=== PATIENT | female | born 1985 | race Two or more races ===

== ENCOUNTER 2017-02-03 12:49 | Day surgery (SDC) | payer BC ==
[~2017-02-03] VITALS: Ht 152.4 cm; Wt 76.0 kg
[~2017-02-03 12:49] MED LIST: NONE PER PT
[2017-02-03] MEDS ORDERED: LACTATED RINGERS 1,000 ML IV SCH (13:17)
[2017-02-03 13:21] VITALS: BP 120/80
[2017-02-03 13:39] LABS: HCG UR OBC PASS
[2017-02-03] MEDS ORDERED: MIDAZOLAM 1 MG/ML, 2ML ONE (14:10)
[2017-02-03] MEDS ORDERED: FENTANYL PF 100 MCG/2ML ONE ×2 (14:10→15:51)
[2017-02-03] MEDS ORDERED: BUPIVACAINE/PF 0.5% ONE (14:37)
[2017-02-03] MEDS ORDERED: METOCLOPRAMIDE 5 MG/ML, 2ML ONE (14:45)
[2017-02-03] MEDS ORDERED: CEFAZOLIN 1,000 MG ONE (14:45)
[2017-02-03] MEDS ORDERED: DEXAMETHASONE 4 MG/ML, 1ML ONE (14:45)
[2017-02-03] MEDS ORDERED: PROPOFOL 10 MG/ML, 20ML ONE (14:45)
[2017-02-03] MEDS ORDERED: MIDAZOLAM 1 MG/ML, 2ML IV PRN (15:00)
[2017-02-03] MEDS ORDERED: hydrALAzine 20 MG/ML, 1ML IV PRN (15:00)
[2017-02-03] MEDS ORDERED: MEPERIDINE/PF 25MG/0.5ML IVPush PRN (15:00)
[2017-02-03] MEDS ORDERED: PROMETHAZINE 25 MG/ML, 1ML IV PRN (15:00)
[2017-02-03] MEDS ORDERED: ONDANSETRON 2MG/ML, 2ML IVPush PRN (15:00)
[2017-02-03] MEDS ORDERED: OXYcodone 5 MG/5 ML ORAL.SOL UDC PO PRN (15:00)
[2017-02-03] MEDS ORDERED: LABETALOL 5MG/ML, 20ML IV PRN (15:00)
[2017-02-03] MEDS ORDERED: OXYcodone 5 MG/5 ML ORAL.SOL UDC ONE (15:52)
[2017-02-03] MEDS: FENTANYL PF 100 MCG/2ML IV PRN ×2 (15:55→16:19)
[2017-02-03] MEDS ORDERED: HYDROmorphone 2 MG/ML, 1ML ONE (16:37)
[2017-02-03] MEDS: HYDROmorphone 1 MG/ML, 1ML IV PRN ×3 (16:38→17:16)
[2017-02-03] MEDS ORDERED: KETOROLAC 30 MG/1 ML ONE (16:55)
[2017-02-03] MEDS ORDERED: KETOROLAC 30 MG/1 ML IVPush SCH (17:00)
== END 2017-02-03 18:40 ==
LOC: OUT 12:49
PROVIDERS: ATTEND Orthopaedic Surgery
DX: M89.8X4 Other specified disorders of bone, hand (principal); Z82.5 Family history of asthma and other chronic lower respiratory diseases
CPT/HCPCS: 26200; 73140; 76000; 81025; 88304; 88311; C1762; J0690; J1100; J1170; J1885; J2250; J2704; J2765; J3010; J3490; J7120

== ENCOUNTER → 2020-11-18 | Outpatient (CLI) | payer OTHER | END | disposition home or self-care (01) | LOC: RAD 15:20 | PROVIDERS: ATTEND Family Medicine | DX: N83.01 Follicular cyst of right ovary (principal); N83.202 Unspecified ovarian cyst, left side | CPT/HCPCS: 76830 ==